=== PATIENT | male | born 1960 | race African-American/Black ===

== ENCOUNTER 2023-01-31 17:50 | Inpatient (IN) | payer OTHER ==
[2023-01-31 19:14] VITALS: BMI 29.1
[2023-01-31] MEDS ORDERED: BISMUTH SUBSALICYLATE 524 MG/30 ML PO PRN (20:20)
[2023-01-31] MEDS ORDERED: NICOTINE POLACRILEX 2 MG GUM BUC PRN (20:20)
[2023-01-31] MEDS ORDERED: BENZOCAINE/MENTHOL (CHLORASEPTIC ) LOZENGE MM PRN (20:20)
[2023-01-31] MEDS ORDERED: NICOTINE 10 MG CARTRIDGE (INHALER) IH PRN (20:20)
[2023-01-31] MEDS ORDERED: LOPERAMIDE HCL 2 MG CAPSULE PO PRN (20:20)
[2023-01-31] MEDS ORDERED: POLYETHYLENE GLYCOL (HEALTHYLAX) 3350 17 GM PACKET PO PRN (20:20)
[2023-01-31] MEDS ORDERED: DICYCLOMINE HCL 10 MG CAPSULE PO PRN (20:20)
[2023-01-31] MEDS ORDERED: MAGNESIUM HYDROX 2400MG/30ML ORAL SUSPENSION 30 ML CUP PO PRN (20:20)
[2023-01-31] MEDS ORDERED: NALOXONE HCL (KLOXXADO) 8 MG SPRAY NS PRN (20:20)
[2023-01-31] MEDS ORDERED: ONDANSETRON *ODT* 4 MG TABLET SL PRN (20:20)
[2023-01-31] MEDS ORDERED: IBUPROFEN 400 MG TABLET (FP) PO PRN (20:20)
[2023-01-31] MEDS ORDERED: hydrOXYzine PAMOATE 25 MG CAPSULE (FP) PO PRN (20:20)
[2023-01-31] MEDS ORDERED: MAG HYDROX/AL HYDROX/SIMETH 30 ML UNIT-DOSE CUP PO PRN (20:20)
[2023-01-31] MEDS ORDERED: P-EPHED 60MG/TRIPROLIDI 2.5MG TABLET PO PRN (20:20)
[2023-01-31] MEDS ORDERED: NALOXONE HCL 0.4 MG/ML VIAL IM PRN (20:20)
[2023-01-31] MEDS ORDERED: IBUPROFEN 600 MG TABLET (FP) PO PRN (20:20)
[2023-01-31] MEDS ORDERED: ACETAMINOPHEN 325 MG TABLET (FP) PO PRN ×2 (20:20)
[2023-01-31] MEDS ORDERED: BENZONATATE 200 MG CAPSULE PO PRN (20:20)
[2023-01-31] MEDS ORDERED: guaiFENesin 600 MG TABLET.ER (FP) PO PRN (20:20)
[2023-01-31] MEDS ORDERED: levETIRAcetam 250 MG TABLET PO SCH (22:00)
[2023-01-31] MEDS: MELATONIN 5 MG TABLETS PO PRN (22:34)
[2023-01-31] MEDS: THIAMINE HCL 100 MG TABLET (FP) PO SCH (22:34)
[2023-01-31] MEDS: BACITRACIN 0.9 GM PACKET TP SCH (23:20)
[2023-01-31] MEDS: SULFAMETHOXAZOLE/TRIMETHOPRIM 800MG/160MG D.S. TABLET PO SCH (23:20)
[2023-02-01] MEDS ORDERED: methaDONE HCL 10 MG TABLET PO SCH (07:43)
[2023-02-01] MEDS ORDERED: LORazepam 1 MG TABLET PO PRN (09:00)
[2023-02-01 10:29] LABS: HEMATOCRIT 40.9 % (35.4-49); MCH 29.2 pg (25.7-33.7); MCHC 34.3 g/dl (32.0-35.9); MEAN CELL VOLUME 85.2 fl (80-96); PLATELET COUNT 129 10^3/uL (134-434); RDW 14.2 % (11.9-15.9); WHITE BLOOD COUNT 4.5 K/mm3 (4.0-10.0)
[2023-02-01] MEDS: BACITRACIN 0.9 GM PACKET TP SCH ×2 (10:30→22:16)
[2023-02-01] MEDS: PRENATAL VITAMINS W/ FOLIC ACID TABLET (FP) PO SCH (10:30)
[2023-02-01] MEDS: SULFAMETHOXAZOLE/TRIMETHOPRIM 800MG/160MG D.S. TABLET PO SCH ×2 (10:30→22:17)
[2023-02-01] MEDS: levETIRAcetam 250 MG TABLET PO SCH ×2 (10:30→22:16)
[2023-02-01] MEDS: LORazepam 2 MG TABLET PO SCH ×3 (10:33→22:16)
[2023-02-01 10:46] LABS: CALCIUM 9.3 mg/dL (8.5-10.1)
[2023-02-01 10:47] LABS: ALBUMIN 3.7 g/dl (3.4-5.0); BLOOD UREA NITROGEN 21.7 mg/dL (7-18)
[2023-02-01 10:49] LABS: CREATININE 0.8 mg/dL (0.55-1.3)
[2023-02-01 10:51] LABS: BILIRUBIN,TOTAL 0.4 mg/dL (0.2-1); TOT PROT 7.5 g/dl (6.4-8.2)
[2023-02-01 21:17] VITALS: RESP 17
[2023-02-01] MEDS: THIAMINE HCL 100 MG TABLET (FP) PO SCH (22:16)
[2023-02-01] MEDS: MELATONIN 5 MG TABLETS PO PRN (22:18)
[2023-02-02] MEDS: LORazepam 2 MG TABLET PO SCH ×2 (05:04→11:12)
[2023-02-02 09:21] VITALS: BP 149/83; PULSE 73; TEMP 98.4
[2023-02-02] MEDS: PRENATAL VITAMINS W/ FOLIC ACID TABLET (FP) PO SCH (10:12)
[2023-02-02] MEDS: SULFAMETHOXAZOLE/TRIMETHOPRIM 800MG/160MG D.S. TABLET PO SCH (10:12)
[2023-02-02] MEDS: levETIRAcetam 250 MG TABLET PO SCH (10:13)
[2023-02-02] MEDS: BACITRACIN 0.9 GM PACKET TP SCH (10:13)
[2023-02-03] MEDS ORDERED: LORazepam 1 MG TABLET PO SCH (05:00)
[2023-02-04] MEDS ORDERED: LORazepam 0.5 MG TABLET PO PRN
[2023-02-04] MEDS ORDERED: LORazepam 0.5 MG TABLET PO SCH (05:00)
[2023-02-05] MEDS ORDERED: LORazepam 0.5 MG TABLET PO ONE (05:00)
== END 2023-02-02 10:20 | disposition left against medical advice (07) | DRG 894 ==
LOC: YASAS 17:50 → Y6N 21:14
PROVIDERS: ADMIT Allergy & Immunology; ATTEND Surgery
PROC: HZ2ZZZZ Detoxification Services for Substance Abuse Treatment (ICD-10-PCS; principal; 2023-01-31)
DX: F10.230 Alcohol dependence with withdrawal, uncomplicated (principal); F11.20 Opioid dependence, uncomplicated; F19.282 Other psychoactive substance dependence with psychoactive substance-induced sleep disorder; F19.280 Other psychoactive substance dependence with psychoactive substance-induced anxiety disorder; F17.210 Nicotine dependence, cigarettes, uncomplicated; F19.24 Other psychoactive substance dependence with psychoactive substance-induced mood disorder; I10 Essential (primary) hypertension; J44.9 Chronic obstructive pulmonary disease, unspecified; E11.9 Type 2 diabetes mellitus without complications; M54.50 Low back pain, unspecified; G89.29 Other chronic pain; Z86.69 Personal history of other diseases of the nervous system and sense organs; Z88.0 Allergy status to penicillin
CPT/HCPCS: 36415; 80053; 85027; 86780

== ENCOUNTER 2024-01-26 17:10 | Inpatient (IN) | payer OTHER ==
[2024-01-26 17:41] VITALS: BMI 27.1
[2024-01-26 18:30] LABS: VENOUS BASE EXCESS 0.2 mmol/L (-2-2); VENOUS O2 SATURATION 86.4 % (70-80); VENOUS PCO2 57.6 mmHg (38-52); VENOUS PH 7.303 (7.310-7.410)
[2024-01-26 18:31] LABS: EOS % 3.7 % (0-4.5); HEMATOCRIT 43.3 % (35.4-49); HEMOGLOBIN 14.5 GM/dL (11.7-16.9); LYMPH % 43.4 % (8-40); MCH 29.1 pg (25.7-33.7); MCHC 33.4 g/dl (32.0-35.9); MEAN CELL VOLUME 87.1 fl (80-96); MEAN PLT VOLUME 8.3 fl (7.5-11.1); NEUT % 42.9 % (42.8-82.8); PLATELET COUNT 157 10^3/uL (134-434); RBC 4.97 M/mm3 (4.00-5.60); RDW 13.5 % (11.9-15.9)
[2024-01-26] MEDS ORDERED: DEXAMETHASONE SOD PHOSPHATE 10 MG/1 ML VIAL ONE (18:32)
[2024-01-26] MEDS ORDERED: ALBUTEROL SO4 2.5/IPRATROPIUM 0.5 INH SOL 3 ML VIAL.NEB. NEB ONE ×2 (18:32→21:52)
[2024-01-26] MEDS ORDERED: ACETAMINOPHEN INJECTION 100 ML IVPB ONE (18:32)
[2024-01-26 18:37] LABS: INR 1.1 (0.83-1.09); PROTHROMBIN TIME (PATIENT) 12.8 SEC (9.7-13.0)
[2024-01-26 18:40] LABS: ACTIVATED PTT 31.5 SECONDS (25.2-36.5)
[2024-01-26] MEDS: ALBUTEROL SO4 2.5/IPRATROPIUM 0.5 INH SOL 3 ML VIAL.NEB. NEB SCH ×2 (18:40→21:44)
[2024-01-26] MEDS: DEXAMETHASONE SOD PHOSPHATE 10 MG/1 ML VIAL IVPUSH ONE (18:40)
[2024-01-26] MEDS: ACETAMINOPHEN 1000 MG/100 ML BAG IVPB ONE (18:40)
[2024-01-26 18:50] LABS: POTASSIUM 3.8 mmol/L (3.5-5.1)
[2024-01-26 18:52] LABS: ALBUMIN 3.5 g/dl (3.4-5.0); BLOOD UREA NITROGEN 9.7 mg/dL (7-18); CALCIUM 8.6 mg/dL (8.5-10.1); MAGNESIUM 2.5 mg/dL (1.8-2.4)
[2024-01-26 18:55] LABS: CREATININE 0.7 mg/dL (0.55-1.3); PHOSPHOROUS 5.1 mg/dL (2.5-4.9)
[2024-01-26 18:57] LABS: BILIRUBIN,TOTAL 0.2 mg/dL (0.2-1); TOT PROT 7.3 g/dl (6.4-8.2)
[2024-01-26] MEDS ORDERED: ALBUTEROL SO4 HFA INHALER IH PRN (20:37)
[2024-01-26 21:27] LABS: N-TERMINAL BNP 59.6 pg/ml (5-125)
[2024-01-26] MEDS: AZITHROMYCIN IVPB 500 MG/250 ML BAG IVPB ONE (21:44)
[2024-01-26] MEDS ORDERED: AZITHROMYCIN IVPB 500 MG/250 ML BAG IVPB ONE (21:52)
[2024-01-26 22:26] LABS: PH,URINE 5.5 (5.0-8.0); URINE APPEARANCE CLEAR; URINE BILIRUBIN NEGATIVE (NEGATIVE); URINE COLOR YELLOW; URINE GLUCOSE (UA) NEGATIVE (NEGATIVE); URINE KETONE NEGATIVE (NEGATIVE); URINE LEUK ESTERASE NEGATIVE (NEGATIVE); URINE NITRITE NEGATIVE (NEGATIVE); URINE PROTEIN NEGATIVE (NEGATIVE); URINE UROBILINOGEN 0.2 mg/dL (0.2-1.0)
[2024-01-26 22:32] LABS: URINE AMPHETAMINES NEGATIVE (NEGATIVE); URINE BARBITURATES NEGATIVE (NEGATIVE)
[2024-01-26 22:33] LABS: PHENCYCLIDINE,URINE NEGATIVE (NEGATIVE)
[2024-01-26 22:35] LABS: COCAINE, UR POSITIVE (NEGATIVE); METHADONE, UR POSITIVE (NEGATIVE); OPIATES, URI POSITIVE (NEGATIVE); URINE BENZODIAZEPINES POSITIVE (NEGATIVE)
[2024-01-26] MEDS ORDERED: hydrOXYzine PAMOATE 25 MG CAPSULE (FP) PO PRN (22:49)
[2024-01-27] MEDS: MELATONIN 5 MG TABLETS PO PRN (01:17)
[2024-01-27] MEDS ORDERED: chlordiazePOXIDE HCL 25 MG CAPSULE PO PRN (02:29)
[2024-01-27] MEDS: methylPREDNISolone NA SUCC 40 MG/1 ML VIAL IVPUSH SCH (04:16)
[2024-01-27] MEDS: chlordiazePOXIDE HCL 25 MG CAPSULE PO SCH (05:46)
[2024-01-27] MEDS ORDERED: methaDONE HCL 10 MG TABLET (FOR DETOX USE ONLY) PO ONE (06:00)
[2024-01-27] MEDS ORDERED: ACETAMINOPHEN 500 MG TABLET (FP) PO PRN (07:19)
[2024-01-27] MEDS: methaDONE HCL 40 MG DISPERSABLE TABLET PO ONE (08:01)
[2024-01-27] MEDS: ALBUTEROL SO4 2.5/IPRATROPIUM 0.5 INH SOL 3 ML VIAL.NEB. NEB SCH (08:09)
[2024-01-27 08:29] LABS: HEMATOCRIT 42.4 % (35.4-49); HEMOGLOBIN 14.4 GM/dL (11.7-16.9); LYMPH % 20.5 % (8-40); MCH 29.2 pg (25.7-33.7); MCHC 33.9 g/dl (32.0-35.9); MEAN CELL VOLUME 86.2 fl (80-96); MEAN PLT VOLUME 8.9 fl (7.5-11.1); MONO % 3.9 % (3.8-10.2); NEUT % 75.6 % (42.8-82.8); PLATELET COUNT 148 10^3/uL (134-434); RBC 4.92 M/mm3 (4.00-5.60); RDW 13.4 % (11.9-15.9); WHITE BLOOD COUNT 3.3 K/mm3 (4.0-10.0)
[2024-01-27 08:55] LABS: CHLORIDE 103 mmol/L (98-107); POTASSIUM 4.2 mmol/L (3.5-5.1); SODIUM 139 mmol/L (136-145)
[2024-01-27 09:01] LABS: BLOOD UREA NITROGEN 16.3 mg/dL (7-18)
[2024-01-27 09:03] LABS: ALBUMIN 3.3 g/dl (3.4-5.0); ANION GAP 8 mmol/L (4-13); CALCIUM 8.8 mg/dL (8.5-10.1); CO2 28 mmol/L (21-32); GLUCOSE,RANDOM 136 mg/dL (74-106); MAGNESIUM 2.2 mg/dL (1.8-2.4)
[2024-01-27 09:06] LABS: CREATININE 0.7 mg/dL (0.55-1.3); PHOSPHOROUS 3.4 mg/dL (2.5-4.9); SGOT/AST 21 U/L (15-37); SGPT/ALT 30 U/L (13-61)
[2024-01-27 09:07] LABS: TOT PROT 7.2 g/dl (6.4-8.2)
[2024-01-27 09:08] LABS: ALK PHOS 80 U/L (45-117)
[2024-01-27 09:12] LABS: BILIRUBIN,TOTAL 0.3 mg/dL (0.2-1)
[2024-01-27] MEDS: predniSONE 20 MG TABLET (UD) PO SCH (09:43)
[2024-01-27] MEDS: THIAMINE HCL 100 MG TABLET (FP) PO SCH (09:44)
[2024-01-27] MEDS: FOLIC ACID 1 MG TABLET (FP) PO SCH (09:44)
[2024-01-27] MEDS: ENOXAPARIN NA (PORCINE) 40 MG/0.4 ML DISP.SYRIN SQ SCH (09:44)
[2024-01-27] MEDS: AZITHROMYCIN 250 MG TABLET PO SCH (09:44)
[2024-01-27] MEDS ORDERED: predniSONE 20 MG TABLET (UD) PO SCH (10:00)
[2024-01-27] MEDS ORDERED: AZITHROMYCIN IVPB 250 MG in DEXTROSE 5%-WATER - 250 ML IVPB SCH (10:00)
[2024-01-27] MEDS: ACETAMINOPHEN WITH CODEINE 300MG/30MG TABLET PO PRN (16:33)
[2024-01-27] MEDS: NICOTINE 7 MG/24 HOURS TOPICAL PATCH TD SCH (21:26)
[2024-01-28] MEDS: chlordiazePOXIDE HCL 25 MG CAPSULE PO SCH (05:52)
[2024-01-28 07:36] LABS: HEMATOCRIT 41.9 % (35.4-49); HEMOGLOBIN 13.7 GM/dL (11.7-16.9); MCH 28.9 pg (25.7-33.7); MCHC 32.8 g/dl (32.0-35.9); PLATELET COUNT 156 10^3/uL (134-434); RBC 4.76 M/mm3 (4.00-5.60); RDW 13.1 % (11.9-15.9); WHITE BLOOD COUNT 10.2 K/mm3 (4.0-10.0)
[2024-01-28 07:54] LABS: POTASSIUM 4.1 mmol/L (3.5-5.1)
[2024-01-28 07:58] LABS: BLOOD UREA NITROGEN 17.6 mg/dL (7-18); CALCIUM 8.9 mg/dL (8.5-10.1); MAGNESIUM 2.1 mg/dL (1.8-2.4)
[2024-01-28 08:02] LABS: CREATININE 0.7 mg/dL (0.55-1.3); PHOSPHOROUS 2.8 mg/dL (2.5-4.9)
[2024-01-28 12:59] VITALS: BP 135/79; PULSE 79; RESP 24; TEMP 97.3
[2024-01-29] MEDS ORDERED: chlordiazePOXIDE HCL 10 MG CAPSULE PO PRN
[2024-01-29] MEDS ORDERED: chlordiazePOXIDE HCL 10 MG CAPSULE PO SCH (05:00)
[2024-01-30] MEDS ORDERED: chlordiazePOXIDE HCL 10 MG CAPSULE PO SCH (05:00)
[2024-01-31] MEDS ORDERED: chlordiazePOXIDE HCL 10 MG CAPSULE PO ONE (05:00)
== END 2024-01-28 10:20 | disposition left against medical advice (07) | DRG 191 ==
LOC: JER 17:10 → JERBED 19:49 → OBSVTOIN 20:30 → J4W 22:54
PROVIDERS: ADMIT Internal Medicine; ATTEND Internal Medicine
DX: J44.1 Chronic obstructive pulmonary disease with (acute) exacerbation (principal); F11.20 Opioid dependence, uncomplicated; F10.10 Alcohol abuse, uncomplicated; F17.210 Nicotine dependence, cigarettes, uncomplicated; M54.50 Low back pain, unspecified; F14.10 Cocaine abuse, uncomplicated; R56.9 Unspecified convulsions; F19.980 Other psychoactive substance use, unspecified with psychoactive substance-induced anxiety disorder; R07.89 Other chest pain
CPT/HCPCS: 0241U-QW; 36415; 71045-TC-FY; 80048; 80053; 80307; 81003; 82550; 82803; 82962; 83605; 83690; 83735; 83880; 84100; 84484; 85025; 85027; 85610; 85730; 86140; 87086; 93005; 93010; 94640; 99285-25; G0378; J0131; J1100

== ENCOUNTER 2024-02-08 18:37 | Inpatient (IN) | payer OTHER ==
[2024-02-08] MEDS ORDERED: ACETAMINOPHEN INJECTION 100 ML IVPB ONE (20:15)
[2024-02-08] MEDS ORDERED: methaDONE HCL 40 MG DISPERSABLE TABLET ONE (20:15)
[2024-02-08] MEDS ORDERED: ALBUTEROL SO4 2.5/IPRATROPIUM 0.5 INH SOL 3 ML VIAL.NEB. NEB ONE (20:15)
[2024-02-08 20:16] LABS: VENOUS BASE EXCESS -0.8 mmol/L (-2-2); VENOUS O2 SATURATION 69.3 % (70-80); VENOUS PCO2 54.2 mmHg (38-52); VENOUS PH 7.308 (7.310-7.410)
[2024-02-08] MEDS ORDERED: AZITHROMYCIN IVPB 500 MG/250 ML BAG IVPB ONE (20:16)
[2024-02-08 20:24] LABS: BASO % 0.6 % (0-2.0); EOS % 2.7 % (0-4.5); HEMATOCRIT 46.9 % (35.4-49); HEMOGLOBIN 15.4 GM/dL (11.7-16.9); LYMPH % 26.3 % (8-40); MCH 28.7 pg (25.7-33.7); MCHC 32.9 g/dl (32.0-35.9); MEAN CELL VOLUME 87.2 fl (80-96); MEAN PLT VOLUME 9.2 fl (7.5-11.1); MONO % 7.8 % (3.8-10.2); NEUT % 62.6 % (42.8-82.8); PLATELET COUNT 150 10^3/uL (134-434); RBC 5.38 M/mm3 (4.00-5.60); RDW 13.4 % (11.9-15.9); WHITE BLOOD COUNT 6.8 K/mm3 (4.0-10.0)
[2024-02-08] MEDS: ACETAMINOPHEN 1000 MG/100 ML BAG IVPB ONE (20:29)
[2024-02-08] MEDS: ALBUTEROL SO4 2.5/IPRATROPIUM 0.5 INH SOL 3 ML VIAL.NEB. NEB SCH (20:30)
[2024-02-08] MEDS: methaDONE HCL 40 MG DISPERSABLE TABLET PO ONE (20:30)
[2024-02-08] MEDS: AZITHROMYCIN IVPB 500 MG in DEXTROSE 5%-WATER - 250 ML IVPB ONE (20:30)
[2024-02-08] MEDS ORDERED: methylPREDNISolone NA SUCC 125 MG/2 ML VIAL ONE (20:32)
[2024-02-08] MEDS: methylPREDNISolone NA SUCC 125 MG/2 ML VIAL IVPB ONE (20:45)
[2024-02-08 20:54] LABS: ALBUMIN 3.6 g/dl (3.4-5.0); BLOOD UREA NITROGEN 13.8 mg/dL (7-18)
[2024-02-08 20:57] LABS: CREATININE 0.9 mg/dL (0.55-1.3)
[2024-02-08 20:58] LABS: BILIRUBIN,TOTAL 0.4 mg/dL (0.2-1); TOT PROT 7.8 g/dl (6.4-8.2)
[2024-02-09] MEDS ORDERED: hydrOXYzine PAMOATE 25 MG CAPSULE (FP) PO PRN (01:06)
[2024-02-09] MEDS ORDERED: ALBUTEROL SO4 HFA INHALER IH PRN (02:04)
[2024-02-09] MEDS: AZITHROMYCIN 250 MG TABLET PO SCH (02:15)
[2024-02-09] MEDS: methylPREDNISolone NA SUCC 40 MG/1 ML VIAL IVPUSH SCH (04:59)
[2024-02-09] MEDS: ALBUTEROL SO4 2.5/IPRATROPIUM 0.5 INH SOL 3 ML VIAL.NEB. NEB SCH ×2 (05:58→05:59)
[2024-02-09] MEDS: chlordiazePOXIDE HCL 25 MG CAPSULE PO SCH (06:45)
[2024-02-09 09:12] LABS: HEMATOCRIT 46.8 % (35.4-49); HEMOGLOBIN 15.2 GM/dL (11.7-16.9); MCH 28.3 pg (25.7-33.7); MCHC 32.5 g/dl (32.0-35.9); MEAN CELL VOLUME 86.9 fl (80-96); MEAN PLT VOLUME 9.7 fl (7.5-11.1); PLATELET COUNT 148 10^3/uL (134-434); RBC 5.39 M/mm3 (4.00-5.60); RDW 13.3 % (11.9-15.9); WHITE BLOOD COUNT 5.3 K/mm3 (4.0-10.0)
[2024-02-09] MEDS: THIAMINE HCL 200 MG/2 ML VIAL IVPB SCH (09:47)
[2024-02-09] MEDS: RIFAXIMIN 550 MG TABLET PO SCH (09:47)
[2024-02-09] MEDS: FOLIC ACID 1 MG TABLET (FP) PO SCH (09:50)
[2024-02-09] MEDS ORDERED: AZITHROMYCIN IVPB 500 MG in DEXTROSE 5%-WATER - 250 ML IVPB SCH (10:00)
[2024-02-09] MEDS ORDERED: FOLIC ACID 1 MG TABLET (FP) PO SCH (10:00)
[2024-02-09] MEDS ORDERED: FLUTICASONE/UMECLIDIN/VILANTER(200-62.5-25 TRELEGY ELLIPTA) INAHLER IH SCH (10:00)
[2024-02-09] MEDS ORDERED: METHYLNALTREXONE BROMIDE 150 MG PO SCH (10:00)
[2024-02-09 10:07] LABS: ALBUMIN 3.7 g/dl (3.4-5.0); BLOOD UREA NITROGEN 12.3 mg/dL (7-18); CALCIUM 9.4 mg/dL (8.5-10.1); MAGNESIUM 2.1 mg/dL (1.8-2.4)
[2024-02-09 10:10] LABS: PHOSPHOROUS 2.8 mg/dL (2.5-4.9)
[2024-02-09 10:11] LABS: CREATININE 0.9 mg/dL (0.55-1.3); TOT PROT 7.8 g/dl (6.4-8.2)
[2024-02-09 10:12] LABS: BILIRUBIN,TOTAL 0.4 mg/dL (0.2-1)
[2024-02-09] MEDS ORDERED: ALBUTEROL SO4 0.083% IH SOL 2.5 MG/3 ML VIAL.NEB. NEB PRN (13:22)
[2024-02-09] MEDS: methaDONE HCL 40 MG DISPERSABLE TABLET PO SCH ×2 (13:23→18:49)
[2024-02-09] MEDS ORDERED: TIOTROPIUM BROMIDE 2.5 MCG (SPIRIVA) RESPIMAT INHALER IH SCH (13:30)
[2024-02-09] MEDS: BUDESONIDE/FORMETEROL FUMARATE 80/4.5 mcg INHALER IH SCH (14:41)
[2024-02-09] MEDS: methaDONE HCL 40 MG DISPERSABLE TABLET PO ONE (18:18)
[2024-02-09] MEDS: DOXYCYCLINE INJECTION 100 MG in DEXTROSE 5%-WATER 100 ML IVPB SCH (21:40)
[2024-02-09] MEDS: MELATONIN 5 MG TABLETS PO PRN (23:26)
[2024-02-10] MEDS: chlordiazePOXIDE HCL 25 MG CAPSULE PO PRN (02:38)
[2024-02-10] MEDS: methaDONE HCL 40 MG DISPERSABLE TABLET PO SCH (05:15)
[2024-02-10] MEDS: chlordiazePOXIDE HCL 25 MG CAPSULE PO SCH (05:16)
[2024-02-10 09:24] LABS: HEMATOCRIT 43.8 % (35.4-49); HEMOGLOBIN 14.2 GM/dL (11.7-16.9); MCH 28.3 pg (25.7-33.7); MCHC 32.3 g/dl (32.0-35.9); MEAN CELL VOLUME 87.6 fl (80-96); MEAN PLT VOLUME 9.3 fl (7.5-11.1); PLATELET COUNT 151 10^3/uL (134-434); RDW 13.2 % (11.9-15.9); WHITE BLOOD COUNT 13.4 K/mm3 (4.0-10.0)
[2024-02-10 09:58] LABS: POTASSIUM 4.3 mmol/L (3.5-5.1)
[2024-02-10 10:06] LABS: CALCIUM 9.6 mg/dL (8.5-10.1); CREATININE 0.7 mg/dL (0.55-1.3)
[2024-02-10 10:07] LABS: ALBUMIN 3.8 g/dl (3.4-5.0); BLOOD UREA NITROGEN 14.5 mg/dL (7-18)
[2024-02-10 10:08] LABS: BILIRUBIN,TOTAL 0.4 mg/dL (0.2-1)
[2024-02-10] MEDS: methaDONE HCL 40 MG DISPERSABLE TABLET PO ONE (10:48)
[2024-02-10 13:07] LABS: ANISOCYTOSIS 0; HELMET CELLS 0; HOWELL-JOLLY BODIES 0; MACROCYTOSIS 0; OVALOCYTE 0; ROULEAU 0; SICKELED CELLS 0; TARGET CELLS 0; TEAR DROP CELLS 0; TOXIC GRANULATION 0
[2024-02-10] MEDS: DOXYCYCLINE HYCLATE 100 MG CAPSULE PO SCH (13:20)
[2024-02-10] MEDS: predniSONE 20 MG TABLET (UD) PO SCH (13:20)
[2024-02-10] MEDS: AMMONIUM LACTATE 12% LOTION 225 GM BOTTLE TP SCH (17:16)
[2024-02-11] MEDS ORDERED: chlordiazePOXIDE HCL 10 MG CAPSULE PO PRN
[2024-02-11] MEDS: chlordiazePOXIDE HCL 10 MG CAPSULE PO SCH (05:37)
[2024-02-11 08:43] LABS: EOS % 0.1 % (0-4.5); HEMATOCRIT 41.5 % (35.4-49); HEMOGLOBIN 13.7 GM/dL (11.7-16.9); LYMPH % 16.1 % (8-40); MCH 28.9 pg (25.7-33.7); MEAN CELL VOLUME 87.7 fl (80-96); MEAN PLT VOLUME 9.5 fl (7.5-11.1); NEUT % 78.8 % (42.8-82.8); PLATELET COUNT 135 10^3/uL (134-434); RBC 4.73 M/mm3 (4.00-5.60); RDW 13.1 % (11.9-15.9); WHITE BLOOD COUNT 10.3 K/mm3 (4.0-10.0)
[2024-02-11 08:44] LABS: POTASSIUM 3.9 mmol/L (3.5-5.1)
[2024-02-11 09:04] LABS: ALBUMIN 3.4 g/dl (3.4-5.0); CALCIUM 9.2 mg/dL (8.5-10.1)
[2024-02-11 09:07] LABS: CREATININE 0.8 mg/dL (0.55-1.3)
[2024-02-11 09:09] LABS: BILIRUBIN,TOTAL 0.4 mg/dL (0.2-1); TOT PROT 7.1 g/dl (6.4-8.2)
[2024-02-11 14:25] VITALS: RESP 18
[2024-02-12] MEDS: chlordiazePOXIDE HCL 10 MG CAPSULE PO SCH (06:35)
[2024-02-12 07:01] VITALS: BP 182/77
[2024-02-12 07:05] VITALS: PULSE 79; TEMP 95.5
[2024-02-12] MEDS: THIAMINE HCL 100 MG TABLET (FP) PO SCH (10:01)
[2024-02-12] MEDS: ENOXAPARIN NA (PORCINE) 40 MG/0.4 ML DISP.SYRIN SQ SCH (10:01)
[2024-02-13] MEDS ORDERED: chlordiazePOXIDE HCL 10 MG CAPSULE PO ONE (05:00)
== END 2024-02-12 16:01 | disposition home or self-care (01) | DRG 191 ==
LOC: JER 18:37 → JERBED 22:16 → J5S 02-09 00:27 → OBSVTOIN 02-09 01:11 → J5S 02-11 11:07
PROVIDERS: ADMIT Internal Medicine; ATTEND Internal Medicine
PROC: HZ2ZZZZ Detoxification Services for Substance Abuse Treatment (ICD-10-PCS; principal; 2024-02-08)
DX: J44.1 Chronic obstructive pulmonary disease with (acute) exacerbation (principal); F10.230 Alcohol dependence with withdrawal, uncomplicated; F11.20 Opioid dependence, uncomplicated; F14.20 Cocaine dependence, uncomplicated; I10 Essential (primary) hypertension; E11.9 Type 2 diabetes mellitus without complications; M54.50 Low back pain, unspecified; F17.210 Nicotine dependence, cigarettes, uncomplicated; F19.94 Other psychoactive substance use, unspecified with psychoactive substance-induced mood disorder; B35.1 Tinea unguium; L85.3 Xerosis cutis
CPT/HCPCS: 0241U-QW; 36415; 71045-TC-FY; 80053; 82803; 82962; 83036; 83735; 84100; 84132; 84484; 85025; 85027; 93005; 93010; 94640; 99285-25; G0378; J0131